=== PATIENT | male | born 1950 | race Caucasian/White ===

== ENCOUNTER 2016-11-28 17:28 | Inpatient (IN) | payer MEDICARE, MEDICAID ==
[2016-11-28] MEDS ORDERED: Furosemide 40 MG/4 ML VIAL IVPUSH ONE (17:39)
--- NOTE | 2016-11-28 18:49 | PCM.HP ---
H&P History of Present Illness - General Date of Service: 11/28/16 Admit Problem/Dx: Admission Diagnosis/Problem Admission Diagnosis/Problem CHF, Congestive heart failure Source of Information: Patient History Limitations: Reports: No Limitations - History of Present Illness Initial Comments - Free Text/Narative: This is a 65-year-old male patient saw Dr. Johanna motley in the clinic for increasing shortness of breath. X-ray was done showed CHF. He's been having weight gain. 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 He says he can lay flat but he usually lays on his side. He denies fevers, chills, cough, nasal congestion no leg swelling. - Related Data Allergies/Adverse Reactions: Allergies Allergy/AdvReac Type Severity Reaction Status Date / Time No Known Allergies Allergy Verified 06/24/15 17:48 Home Medications: Home Meds . 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 Social & Family History - Family History Family Medical History: Noncontributory - Tobacco Use Smoking Status *Q: Current Some Day Smoker Years of Tobacco use: 40 Packs/Tins Daily: 1 Used Tobacco, but Quit: No Second Hand Smoke Exposure: No - Caffeine Use Caffeine Use: Reports: None - Alcohol Use Days Per Week of Alcohol Use: 7 Number of Drinks Per Day: 2 Total Drinks Per Week: 14 Date of Last Drink: 11/27/16 Time of Last Drink: 20:00 - Recreational Drug Use Recreational Drug Use: No H&P Review of Systems - Review of Systems: Review Of Systems: See Below General: Reports: No Symptoms HEENT: Reports: No Symptoms Pulmonary: Reports: Shortness of Breath. Denies: Cough, Sputum, Hemoptysis Cardiovascular: Denies: Chest Pain, Orthopnea, PND Gastrointestinal: Reports: No Symptoms Genitourinary: Reports: No Symptoms Musculoskeletal: Reports: No Symptoms Skin: Reports: No Symptoms Psychiatric: Reports: No Symptoms Neurological: Reports: No Symptoms Hematologic/Lymphatic: Reports: No Symptoms Immunologic: Reports: No Symptoms Exam - Exam Exam: See Below - Vital Signs Vital Signs: Last Vital Signs Temp 97.9 F 11/28/16 17:45 Pulse 87 11/28/16 17:45 Resp 16 11/28/16 17:45 BP 102/70 11/28/16 17:45 Pulse Ox 93 L 11/28/16 17:45 Weight: 227 lb 12.8 oz - Exam General: Alert, Oriented, Cooperative HEENT: PERRLA, Hearing Intact, Posterior Pharynx Clear, TMs Clear Neck: Supple, Trachea Midline. No: Lymphadenopathy, Carotid Bruit, JVD Lungs: Normal Respiratory Effort, Crackles (Bilateral worse on the right) Cardiovascular: Regular Rate, Regular Rhythm, Normal S1, Normal S2. No: Bradycardia, Tachycardia, Systolic Murmur, Diastolic Murmur GI/Abdominal Exam: Normal Bowel Sounds, Soft, Non-Tender, No Organomegaly, No Distention, No Abnormal Bruit, No Mass Back Exam: Normal Inspection, Full Range of Motion, NT Extremities: No Pedal Edema, Other (Left leg amputated with prosthesis.) Skin: Warm, Dry, Intact Neurological: Normal Speech, Normal Tone Neuro Extensive - Mental Status: Alert, Oriented x3, Normal Mood/Affect, Normal Cognition Neuro Extensive - Motor, Sensory, Reflexes: Normal Gait Psychiatric: Alert, Normal Affect, Normal Mood - Patient Data Lab Results Last 24 hrs: Laboratory Results - last 24 hr 11/28/16 11/28/16 11/28/16 Range/Units 18:05 18:05 18:05 WBC 6.8 (4.5-12.0) X10-3/uL RBC 4.56 (4.30-5.75) x10(6)uL Hgb 13.1 (11.5-15.5) g/dL Hct 39.7 (30.0-51.3) % MCV 87.1 (80-96) fL MCH 28.8 (27.7-33.6) pg MCHC 33.1 (32.2-35.4) g/dL RDW 14.7 (11.5-15.5) % Plt Count 243 (125-369) X10(3)uL MPV 7.8 (7.4-10.4) fL Neut % (Auto) 67.1 (46-82) % Lymph % (Auto) 18.1 (13-37) % [place] % (Auto) 7.2 (4-12) % Eos % (Auto) 6 H (1.0-5.0) % Baso % (Auto) 2 (0-2) % Neut # (Auto) 4.6 (1.6-8.3) # Lymph # (Auto) 1.2 (0.6-5.0) # [place] # (Auto) 0.5 (0.0-1.3) # Eos # (Auto) 0.4 (0.0-0.8) # Baso # (Auto) 0.1 (0.0-0.2) # Sodium 138 (135-145) mmol/L Potassium 4.8 (3.5-5.3) mmol/L Chloride 108 (100-110) mmol/L Carbon Dioxide 21 L (23-29) mmol/L BUN 32 H (8-23) mg/dL Creatinine 1.3 (0.6-1.3) mg/dL Est Cr Clr Drug Dosing 66.74 mL/min Estimated GFR (MDRD) 56 L (>60) BUN/Creatinine Ratio 24.6 H (9-20) Glucose 156 H (80-116) mg/dL Calcium 8.9 (8.6-10.2) mg/dL Total Bilirubin 0.7 (0.1-1.3) mg/dL AST 19 (5-27) IU/L ALT 14 (14-26) IU/L Alkaline Phosphatase 98 (56-112) IU/L Troponin I 0.06 (0.02-0.06) NG/ML B-Natriuretic Peptide (0-100) pg/mL Total Protein 7.9 (6.0-8.0) g/dL Albumin 3.9 (3.2-4.6) g/dL Globulin 4.0 g/dL Albumin/Globulin Ratio 1.0 11/28/ Range/Units 18:05 WBC (4.5-12.0) X10-3/uL RBC (4.30-5.75) x10(6)uL Hgb (11.5-15.5) g/dL Hct (30.0-51.3) % MCV (80-96) fL MCH (27.7-33.6) pg MCHC (32.2-35.4) g/dL RDW (11.5-15.5) % Plt Count (125-369) X10(3)uL MPV (7.4-10.4) fL Neut % (Auto) (46-82) % Lymph % (Auto) (13-37) % [place] % (Auto) (4-12) % Eos % (Auto) (1.0-5.0) % Baso % (Auto) (0-2) % Neut # (Auto) (1.6-8.3) # Lymph # (Auto) (0.6-5.0) # [place] # (Auto) (0.0-1.3) # Eos # (Auto) (0.0-0.8) # Baso # (Auto) (0.0-0.2) # Sodium (135-145) mmol/L Potassium (3.5-5.3) mmol/L Chloride (100-110) mmol/L Carbon Dioxide (23-29) mmol/L BUN (8-23) mg/dL Creatinine (0.6-1.3) mg/dL Est Cr Clr Drug Dosing mL/min Estimated GFR (MDRD) (>60) BUN/Creatinine Ratio (9-20) Glucose (80-116) mg/dL Calcium (8.6-10.2) mg/dL Total Bilirubin (0.1-1.3) mg/dL AST (5-27) IU/L ALT (14-26) IU/L Alkaline Phosphatase (56-112) IU/L Troponin I (0.02-0.06) NG/ML B-Natriuretic Peptide 681 H (0-100) pg/mL Total Protein (6.0-8.0) g/dL Albumin (3.2-4.6) g/dL Globulin g/dL Albumin/Globulin Ratio Result Diagrams: 11/28/16 18:05 11/28/16 18:05 *Q Meaningful Use (ADM) - VTE *Q VTE Criteria *Q: - Stroke *Q Stroke Criteria *Q: - AMI *Q AMI Criteria *Q: - Problem List (1) CHF (congestive heart failure) SNOMED Code(s): 68488859 ICD Code: I50.9 - HEART FAILURE, UNSPECIFIED Status: Acute Current Visit : Yes (2) Diabetes SNOMED Code(s): 00309736 ICD Code: E11.9 - TYPE 2 DIABETES MELLITUS WITHOUT COMPLICATIONS Status: Acute Current Visit: Yes Problem List Initiated/Reviewed/Updated: Yes Orders Last 24hrs: Active Orders 24 hr Category Date Time Status Patient Status [ADT] Routine ADT 11/28/16 17:34 Active EKG Documentation Completion [RC] ASDIRECTED Care 11/28/16 17:37 Active Height and Weight [RC] DAILY Care 11/28/16 17:34 Active Intake and Output [RC] QSHIFT Care 11/28/16 17:35 Active Oxygen Therapy [RC] PRN Care 11/28/16 17:34 Active Telemetry Monitoring [Cardiac Monitoring] [RC] .As Care 11/28/16 18:26 Active Directed Up ad Michelle [RC] ASDIRECTED Care 11/28/16 17:34 Active VTE/DVT Education [RC] Per Unit Routine Care 11/28/16 17:34 Active Vital Signs [RC] Q4H Care 11/28/16 17:34 Active Consistent Carbohydrate Diet [DIET] Diet 11/28/16 Dinner Active UA W/MICROSCOPIC [URIN] Routine Lab 11/28/16 17:34 Uncollected Sodium Chloride 0.9% [Saline Flush] Med 11/28/16 17:34 Active 10 ml FLUSH ASDIRECTED PRN Peripheral IV Insertion Adult [OM.PC] Routine Oth 11/28/16 17:34 Ordered Resuscitation Status Routine Resus Stat 11/28/16 17:34 Ordered EKG 12 Lead [EK] Routine Ther 11/28/16 17:34 Ordered Medication Orders Sodium Chloride (Saline Flush) 10 ml FLUSH ASDIRECTED PRN PRN Reason: Keep Vein Open Assessment/Plan Comment:: 1. Admit inpatient. 2. IV Lasix. 3. CBC, CMP, BNP, UA, EKG, troponin 4. Diabetic diet. 5. High-dose sliding scale with Accu-Cheks 4 times a day. 6. Diabetic diet. 7. Up ad michelle. 8. Eyes nose daily weights. 9. Discussed CODE STATUS needle wants to be a full code. 10. Patient has had an echo within the last 6 months. Is evident the clinic. 11. Chest x-ray reviewed at the clinic. Wait for radiology interpretation.
[2016-11-28] MEDS: Sodium Chloride 0.9% 10 ML Syringe FLUSH PRN ×2 (18:52→19:04)
[2016-11-28] MEDS ORDERED: Enoxaparin 40 MG/0.4 ML Syringe SUBCUT SCH (21:00)
[2016-11-28] MEDS ORDERED: Insulin Aspart 100 Units/ML 3 ML Pen SUBCUT SCH (21:00)
[2016-11-29] MEDS: Insulin Aspart 100 Units/ML 3 ML Pen SUBCUT SCH ×3 (08:26→17:26)
[2016-11-29] MEDS ORDERED: Furosemide 40 MG Tab PO PRN (09:34)
[2016-11-29] MEDS ORDERED: Levofloxacin 250 MG Tab PO SCH (09:45)
--- NOTE | 2016-11-29 09:53 | PCM.PN ---
- General Info Date of Service: 11/29/16 Admission Dx/Problem (Free Text): Patient denies leg swelling, chest pain. Breathing about the same. No cough, fevers or chills. - Patient Data Vitals - Most Recent: Last Vital Signs Temp 97.4 F 11/29/16 07:40 Pulse 82 11/29/16 07:40 Resp 20 11/29/16 07:40 BP 99/68 11/29/16 07:40 Pulse Ox 92 L 11/29/16 07:40 Weight - Most Recent: 225 lb 8 oz I&O - Last 24 Hours: Intake & Output 11/28/16 11/29/16 11/29/16 22:59 06:59 14:59 Intake Total 250 Output Total 1325 600 Balance -1075 -600 Lab Results Last 24 Hours: Laboratory Results - last 24 hr 11/28/16 11/28/16 11/28/16 Range/Units 18:05 18:05 18:05 WBC 6.8 (4.5-12.0) X10-3/uL RBC 4.56 (4.30-5.75) x10(6)uL Hgb 13.1 (11.5-15.5) g/dL Hct 39.7 (30.0-51.3) % MCV 87.1 (80-96) fL MCH 28.8 (27.7-33.6) pg MCHC 33.1 (32.2-35.4) g/dL RDW 14.7 (11.5-15.5) % Plt Count 243 (125-369) X10(3)uL MPV 7.8 (7.4-10.4) fL Neut % (Auto) 67.1 (46-82) % Lymph % (Auto) 18.1 (13-37) % [place] % (Auto) 7.2 (4-12) % Eos % (Auto) 6 H (1.0-5.0) % Baso % (Auto) 2 (0-2) % Neut # (Auto) 4.6 (1.6-8.3) # Lymph # (Auto) 1.2 (0.6-5.0) # [place] # (Auto) 0.5 (0.0-1.3) # Eos # (Auto) 0.4 (0.0-0.8) # Baso # (Auto) 0.1 (0.0-0.2) # Sodium 138 (135-145) mmol/L Potassium 4.8 (3.5-5.3) mmol/L Chloride 108 (100-110) mmol/L Carbon Dioxide 21 L (23-29) mmol/L BUN 32 H (8-23) mg/dL Creatinine 1.3 (0.6-1.3) mg/dL Est Cr Clr Drug Dosing 66.74 mL/min Estimated GFR (MDRD) 56 L (>60) BUN/Creatinine Ratio 24.6 H (9-20) Glucose 156 H (80-116) mg/dL POC Glucose (80-116) mg/dL Calcium 8.9 (8.6-10.2) mg/dL Total Bilirubin 0.7 (0.1-1.3) mg/dL AST 19 (5-27) IU/L ALT 14 (14-26) IU/L Alkaline Phosphatase 98 (56-112) IU/L Troponin I 0.06 (0.02-0.06) NG/ML B-Natriuretic Peptide (0-100) pg/mL Total Protein 7.9 (6.0-8.0) g/dL Albumin 3.9 (3.2-4.6) g/dL Globulin 4.0 g/dL Albumin/Globulin Ratio 1.0 Urine Color (YELLOW) Urine Appearance (CLEAR) Urine pH (5.0-6.5) Ur Specific [place] (1.010-1.025) Urine Protein (NEGATIVE) mg/dL Urine Glucose (UA) (NEGATIVE) mg/dL Urine Ketones (NEGATIVE) mg/dL Urine Occult Blood (NEGATIVE) Urine Nitrite (NEGATIVE) Urine Bilirubin (NEGATIVE) Urine Urobilinogen (NEGATIVE) mg/dL Ur Leukocyte Esterase (NEGATIVE) Urine RBC (0) Urine WBC (0) Ur Squamous Epith Cells (NS,R,O) Urine Bacteria (NS) 11/28/16 11/28/16 11/28/16 Range/Units 18:05 21:10 21:51 WBC (4.5-12.0) X10-3/uL RBC (4.30-5.75) x10(6)uL Hgb (11.5-15.5) g/dL Hct (30.0-51.3) % MCV (80-96) fL MCH (27.7-33.6) pg MCHC (32.2-35.4) g/dL RDW (11.5-15.5) % Plt Count (125-369) X10(3)uL MPV (7.4-10.4) fL Neut % (Auto) (46-82) % Lymph % (Auto) (13-37) % [place] % (Auto) (4-12) % Eos % (Auto) (1.0-5.0) % Baso % (Auto) (0-2) % Neut # (Auto) (1.6-8.3) # Lymph # (Auto) (0.6-5.0) # [place] # (Auto) (0.0-1.3) # Eos # (Auto) (0.0-0.8) # Baso # (Auto) (0.0-0.2) # Sodium (135-145) mmol/L Potassium (3.5-5.3) mmol/L Chloride (100-110) mmol/L Carbon Dioxide (23-29) mmol/L BUN (8-23) mg/dL Creatinine (0.6-1.3) mg/dL Est Cr Clr Drug Dosing mL/min Estimated GFR (MDRD) (>60) BUN/Creatinine Ratio (9-20) Glucose (80-116) mg/dL POC Glucose 188 H (80-116) mg/dL Calcium (8.6-10.2) mg/dL Total Bilirubin (0.1-1.3) mg/dL AST (5-27) IU/L ALT (14-26) IU/L Alkaline Phosphatase (56-112) IU/L Troponin I (0.02-0.06) NG/ML B-Natriuretic Peptide 681 H (0-100) pg/mL Total Protein (6.0-8.0) g/dL Albumin (3.2-4.6) g/dL Globulin g/dL Albumin/Globulin Ratio Urine Color Yellow (YELLOW) Urine Appearance Clear (CLEAR) Urine pH 5.0 (5.0-6.5) Ur Specific [place] 1.010 (1.010-1.025) Urine Protein Negative (NEGATIVE) mg/dL Urine Glucose (UA) Normal (NEGATIVE) mg/dL Urine Ketones Negative (NEGATIVE) mg/dL Urine Occult Blood Negative (NEGATIVE) Urine Nitrite Negative (NEGATIVE) Urine Bilirubin Negative (NEGATIVE) Urine Urobilinogen Normal (NEGATIVE) mg/dL Ur Leukocyte Esterase Negative (NEGATIVE) Urine RBC Not seen (0) Urine WBC 0-5 (0) Ur Squamous Epith Cells Few H (NS,R,O) Urine Bacteria Few H (NS) 11/29/16 Range/Units 05:53 WBC (4.5-12.0) X10-3/uL RBC (4.30-5.75) x10(6)uL Hgb (11.5-15.5) g/dL Hct (30.0-51.3) % MCV (80-96) fL MCH (27.7-33.6) pg MCHC (32.2-35.4) g/dL RDW (11.5-15.5) % Plt Count (125-369) X10(3)uL MPV (7.4-10.4) fL Neut % (Auto) (46-82) % Lymph % (Auto) (13-37) % [place] % (Auto) (4-12) % Eos % (Auto) (1.0-5.0) % Baso % (Auto) (0-2) % Neut # (Auto) (1.6-8.3) # Lymph # (Auto) (0.6-5.0) # [place] # (Auto) (0.0-1.3) # Eos # (Auto) (0.0-0.8) # Baso # (Auto) (0.0-0.2) # Sodium (135-145) mmol/L Potassium (3.5-5.3) mmol/L Chloride (100-110) mmol/L Carbon Dioxide (23-29) mmol/L BUN (8-23) mg/dL Creatinine (0.6-1.3) mg/dL Est Cr Clr Drug Dosing mL/min Estimated GFR (MDRD) (>60) BUN/Creatinine Ratio (9-20) Glucose (80-116) mg/dL POC Glucose 177 H (80-116) mg/dL Calcium (8.6-10.2) mg/dL Total Bilirubin (0.1-1.3) mg/dL AST (5-27) IU/L ALT (14-26) IU/L Alkaline Phosphatase (56-112) IU/L Troponin I (0.02-0.06) NG/ML B-Natriuretic Peptide (0-100) pg/mL Total Protein (6.0-8.0) g/dL Albumin (3.2-4.6) g/dL Globulin g/dL Albumin/Globulin Ratio Urine Color (YELLOW) Urine Appearance (CLEAR) Urine pH (5.0-6.5) Ur Specific [place] (1.010-1.025) Urine Protein (NEGATIVE) mg/dL Urine Glucose (UA) (NEGATIVE) mg/dL Urine Ketones (NEGATIVE) mg/dL Urine Occult Blood (NEGATIVE) Urine Nitrite (NEGATIVE) Urine Bilirubin (NEGATIVE) Urine Urobilinogen (NEGATIVE) mg/dL Ur Leukocyte Esterase (NEGATIVE) Urine RBC (0) Urine WBC (0) Ur Squamous Epith Cells (NS,R,O) Urine Bacteria (NS) Med Orders - Current: Current Medications Amiodarone HCl (Cordarone) 200 mg PO DAILY ON LICENSE OF [facility] Aspirin (Aspirin) 81 mg PO DAILY ON LICENSE OF [facility] Carvedilol (Coreg) 3.125 mg PO BIDMEALS ON LICENSE OF [facility] Enoxaparin Sodium (Lovenox) 40 mg SUBCUT Q24H ON LICENSE OF [facility] Last Admin: 11/28/16 22:10 Dose: 40 mg Furosemide (Lasix) 40 mg PO DAILY PRN PRN Reason: WEIGHT GAIN 3# OR MORE Insulin Aspart (Novolog) 0 unit SUBCUT QIDACANDBED ON LICENSE OF [facility] PRN Reason: Protocol Last Admin: 11/29/16 08:26 Dose: 3 units Levofloxacin (Levaquin) 250 mg PO Q24H ON LICENSE OF [facility] Lisinopril (Prinivil) 10 mg PO DAILY ON LICENSE OF [facility] Metformin HCl (Glucophage) 1,000 mg PO BIDMEALS ON LICENSE OF [facility] Simvastatin (Zocor) 10 mg PO BEDTIME ON LICENSE OF [facility] Sodium Chloride (Saline Flush) 10 ml FLUSH ASDIRECTED PRN PRN Reason: Keep Vein Open Last Admin: 11/28/16 19:04 Dose: 10 ml Warfarin Sodium (Coumadin) 5 mg PO DAILY ON LICENSE OF [facility] Discontinued Medications Furosemide (Lasix) 60 mg IVPUSH NOW ONE Stop: 11/28/16 17:40 Last Admin: 11/28/16 18:53 Dose: 60 mg Insulin Aspart (Novolog) 0 unit SUBCUT QID ON LICENSE OF [facility] PRN Reason: Protocol Last Admin: 11/28/16 22:09 Dose: 3 units - Exam General: Alert, Oriented, Cooperative Lungs: Normal Respiratory Effort, Crackles Cardiovascular: Regular Rate, Regular Rhythm, No Murmurs Extremities: No Pedal Edema - Problem List & Annotations (1) Diabetes SNOMED Code(s): 34211486 Code(s): E11.9 - TYPE 2 DIABETES MELLITUS WITHOUT COMPLICATIONS Status: Acute Current Visit: Yes (2) Pneumonia SNOMED Code(s): 064045729 Code(s): J18.9 - PNEUMONIA, UNSPECIFIED ORGANISM Status: Acute Current Visit: Yes - Problem List Review Problem List Initiated/Reviewed/Updated: Yes - My Orders Last 24 Hours: My Active Orders 11/28/16 17:34 Patient Status [ADT] Routine Oxygen Therapy [RC] PRN Up ad Michelle [RC] ASDIRECTED Vital Signs [RC] 04,08,12,16,20,00 Sodium Chloride 0.9% [Saline Flush] 10 ml FLUSH ASDIRECTED PRN Peripheral IV Insertion Adult [OM.PC] Routine Resuscitation Status Routine EKG 12 Lead [EK] Routine 11/28/16 19:36 Blood Glucose Check, Bedside [RC] 07,1130,1730,2100 11/28/16 21:00 Enoxaparin [Lovenox] 40 mg SUBCUT Q24H 11/28/16 Dinner Consistent Carbohydrate Diet [DIET] 11/29/16 08:30 Insulin Aspart [NovoLOG] 0 unit SUBCUT QIDACANDBED 11/29/16 09:32 Ang Chest [CT] Routine 11/29/16 09:34 Furosemide [Lasix] 40 mg PO DAILY PRN 11/29/16 09:45 INR,PT,PROTHROMBIN TIME [COAG] DAILY Levofloxacin [Levaquin] 250 mg PO Q24H 11/29/16 18:00 Carvedilol [Coreg] 3.125 mg PO BIDMEALS metFORMIN [Glucophage] 1,000 mg PO BIDMEALS 11/29/16 21:00 Simvastatin [Zocor] 10 mg PO BEDTIME 11/30/16 09:00 Amiodarone [Cordarone] 200 mg PO DAILY Aspirin 81 mg PO DAILY Lisinopril [Prinivil] 10 mg PO DAILY Warfarin [Coumadin] 5 mg PO DAILY 11/30/16 09:45 INR,PT,PROTHROMBIN TIME [COAG] DAILY 12/01/16 09:45 INR,PT,PROTHROMBIN TIME [COAG] DAILY 12/02/16 09:45 INR,PT,PROTHROMBIN TIME [COAG] DAILY 12/03/16 09:45 INR,PT,PROTHROMBIN TIME [COAG] DAILY 12/04/16 09:45 INR,PT,PROTHROMBIN TIME [COAG] DAILY - Plan Plan:: 1. CT scan chest due to pneumonia and cannot rule out malignancy. 2. DC daily weights, I/oh 3. Levaquin 750 mg by mouth daily. 3. Restart home medications.
[2016-11-29] MEDS ORDERED: Levofloxacin 500 MG Tab PO SCH (10:00)
[2016-11-29] MEDS ORDERED: Aspirin 81 MG Tab.Chew PO SCH (10:30)
[2016-11-29] MEDS ORDERED: Amiodarone 200 MG Tab PO SCH (10:30)
[2016-11-29] MEDS ORDERED: Lisinopril 10 MG Tab PO SCH (10:30)
[2016-11-29] MEDS ORDERED: Azithromycin 500 MG Tab PO ONE (11:00)
[2016-11-29] MEDS ORDERED: Amoxicillin/Clavulanate K 875-125 MG Tab PO SCH (11:00)
[2016-11-29] MEDS: Carvedilol 3.125 MG Tab PO SCH ×2 (11:22→18:41)
[2016-11-29] MEDS ORDERED: Iopamidol 755 MG/ML 150 ML Bottle IV ONE (11:28)
[2016-11-29] MEDS ORDERED: metFORMIN 1,000 MG Tab PO SCH (12:00)
--- NOTE | 2016-11-29 15:05 | CT ---
INDICATION: Follow-up pneumonia. Cannot rule out CA. Smoker, 1 pack per day x40 years. CT CHEST WITH CONTRAST: Spiral 2.5-mm axial sections were obtained through the chest with 78 mL Isovue-370 at 3 mL per second, with sagittal and coronal reconstructions, 11/29/2016. Comparison was to chest x-ray from [facility] dated 11/28/2016. Total Exam DLP = 626.80 mGy-cm. Bilateral pleural effusions are noted, large on the right, moderately large on the left. Minimal, mostly subpleural patchy infiltration is scattered about the lungs bilaterally. Findings may be on the basis of pneumonia and pleuritis , but should be correlated clinically. No nodular changes to strongly suggest metastatic disease could be identified. No finding to strongly suggest a primary neoplasm was seen. Mediastinal lymphadenopathy is moderate and nonspecific. It could be on the basis of inflammatory disease - pneumonia. Calcifications are noted in the aorta and, extensively, coronary arteries. The heart is enlarged to a moderate degree. The adrenal glands were unremarkable. Fat stranding - renal fascial thickening compatible with renal cortical scarring - is noted. The gallbladder is contracted. There are a few tiny higher density areas in the neck of the gallbladder, suggesting the possibility of tiny calculi. IMPRESSION: 1. Infiltration and effusions may be on the basis of pneumonia and pleuritis, but should be correlated clinically. No gross evidence for malignancy is identified. 2. ASHD with coronary artery calcifications and cardiac enlargement. 3. Renal cortical scarring. 4. Possible tiny calculi with contracted gallbladder - cholelithiasis. Report was called to Dr. Galvez at 1420 hours, 11/29/2016. [facility]
[2016-11-29] MEDS ORDERED: Warfarin 5 MG Tab PO SCH (16:00)
[2016-11-29 17:20] VITALS: BP 93/64
--- NOTE | 2016-11-29 18:14 | PCM.SN ---
- Free Text/Narrative Note: Patient's CT showed pneumonia little pleural effusion. Little gallbladder stones. No CHF. No malignancy. We'll discharged him to home on by mouth antibiotics.
--- NOTE | 2016-11-29 18:19 | PCM.DCSUM1 ---
Discharge Summary - Hospital Course Free Text/Narrative:: Hospital course-the patient was admitted his chest x-ray was reviewed at the clinic. He is given some IV Lasix and did some diuresis. Next morning x-ray report was pneumonia. Sent cannot rule out malignancy. CT scan was done showed pneumonia without malignancy. Radiologist recommended to be rechecked to make sure it clears up. Patient's breathing was better. He is afebrile with no his of congestion, cough or leg swelling. Brief History: This is a 65-year-old male patient saw Dr. Johanna motley in the clinic for increasing shortness of breath. X-ray was done showed CHF. He's been having weight gain. 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 He says he can lay flat but he usually lays on his side. He denies fevers, chills, cough, nasal congestion no leg swelling. - Discharge Data Discharge Date: 11/29/16 Discharge Disposition: Home, Self-Care 01 Condition: Good - Discharge Diagnosis/Problem(s) (1) Diabetes SNOMED Code(s): 91867606 ICD Code: E11.9 - TYPE 2 DIABETES MELLITUS WITHOUT COMPLICATIONS Status: Acute Current Visit: Yes (2) Pneumonia SNOMED Code(s): 453432490 ICD Code: J18.9 - PNEUMONIA, UNSPECIFIED ORGANISM Status: Acute Current Visit: Yes (3) Gallstones SNOMED Code(s): 136793802 ICD Code: K80.20 - CALCULUS OF GALLBLADDER W/O CHOLECYSTITIS W/O OBSTRUCTION Status: Acute Current Visit: Yes - Patient Instructions Diet: Diabetic Diet Activity: As Tolerated Driving: May Drive Today Showering/Bathing: May Shower Notify Provider of: Fever, Increased Pain, Drainage, Nausea and/or Vomiting Other/Special Instructions: 1. Recheck with Dr. Spencer in 10-12 days with a chest x-ray. - Discharge Plan Prescriptions/Med Rec: Amoxicillin/Clavulanate K [Augmentin 875-125 MG] 1 tab PO BID #20 tablet Azithromycin [Zithromax] 250 mg PO DAILY #5 tablet Home Medications: Home Meds Amiodarone [Cordarone] 200 mg PO DAILY 11/28/16 [History] Aspirin 81 mg PO DAILY 11/28/16 [History] Carvedilol 3.125 mg PO BIDMEALS 11/28/16 [History] Furosemide 40 mg PO DAILY PRN 11/28/16 [History] Lisinopril 10 mg PO DAILY 11/28/16 [History] Simvastatin [Zocor] 10 mg PO BEDTIME 11/28/16 [History] Warfarin [Coumadin] 5 mg PO DAILY 11/28/16 [History] metFORMIN [Glucophage] 1,000 mg PO BIDMEALS 11/28/16 [History] Amoxicillin/Clavulanate K [Augmentin 875-125 MG] 1 tab PO BID #20 tablet [Rx] Azithromycin [Zithromax] 250 mg PO DAILY #5 tablet 11/29/16 [Rx] Patient Handouts: Type 2 Diabetes Mellitus, Adult, Atelectasis, Adult, Heart Failure, [id number], Fall Prevention in Hospitals, Adult, Venous Thromboembolism Prevention, Community-Acquired Pneumonia, Adult, [id number] - Discharge Summary/Plan Comment DC Time >30 min.: No - Patient Data Vitals - Most Recent: Last Vital Signs Temp 97.6 F 11/29/16 15:35 Pulse 52 L 11/29/16 17:08 Resp 24 H 11/29/16 17:08 BP 93/64 11/29/16 17:08 Pulse Ox 95 11/29/16 17:08 Weight - Most Recent: 225 lb 8 oz I&O - Last 24 hours: Intake & Output 11/29/16 11/29/16 11/29/16 06:59 14:59 22:59 Output Total 600 Balance -600 Lab Results - Last 24 hrs: Laboratory Results - last 24 hr 11/28/16 11/28/16 11/28/16 Range/Units 18:05 18:05 18:05 WBC 6.8 (4.5-12.0) X10-3/uL RBC 4.56 (4.30-5.75) x10(6)uL Hgb 13.1 (11.5-15.5) g/dL Hct 39.7 (30.0-51.3) % MCV 87.1 (80-96) fL MCH 28.8 (27.7-33.6) pg MCHC 33.1 (32.2-35.4) g/dL RDW 14.7 (11.5-15.5) % Plt Count 243 (125-369) X10(3)uL MPV 7.8 (7.4-10.4) fL Neut % (Auto) 67.1 (46-82) % Lymph % (Auto) 18.1 (13-37) % Crosby % (Auto) 7.2 (4-12) % Eos % (Auto) 6 H (1.0-5.0) % Baso % (Auto) 2 (0-2) % Neut # (Auto) 4.6 (1.6-8.3) # Lymph # (Auto) 1.2 (0.6-5.0) # Crosby # (Auto) 0.5 (0.0-1.3) # Eos # (Auto) 0.4 (0.0-0.8) # Baso # (Auto) 0.1 (0.0-0.2) # PT (8.7-11.1) INR (0.89-1.13) Sodium 138 (135-145) mmol/L Potassium 4.8 (3.5-5.3) mmol/L Chloride 108 (100-110) mmol/L Carbon Dioxide 21 L (23-29) mmol/L BUN 32 H (8-23) mg/dL Creatinine 1.3 (0.6-1.3) mg/dL Est Cr Clr Drug Dosing 66.74 mL/min Estimated GFR (MDRD) 56 L (>60) BUN/Creatinine Ratio 24.6 H (9-20) Glucose 156 H (80-116) mg/dL POC Glucose (80-116) mg/dL Calcium 8.9 (8.6-10.2) mg/dL Total Bilirubin 0.7 (0.1-1.3) mg/dL AST 19 (5-27) IU/L ALT 14 (14-26) IU/L Alkaline Phosphatase 98 (56-112) IU/L Troponin I 0.06 (0.02-0.06) NG/ML B-Natriuretic Peptide (0-100) pg/mL Total Protein 7.9 (6.0-8.0) g/dL Albumin 3.9 (3.2-4.6) g/dL Globulin 4.0 g/dL Albumin/Globulin Ratio 1.0 Urine Color (YELLOW) Urine Appearance (CLEAR) Urine pH (5.0-6.5) Ur Specific [place] (1.010-1.025) Urine Protein (NEGATIVE) mg/dL Urine Glucose (UA) (NEGATIVE) mg/dL Urine Ketones (NEGATIVE) mg/dL Urine Occult Blood (NEGATIVE) Urine Nitrite (NEGATIVE) Urine Bilirubin (NEGATIVE) Urine Urobilinogen (NEGATIVE) mg/dL Ur Leukocyte Esterase (NEGATIVE) Urine RBC (0) Urine WBC (0) Ur Squamous Epith Cells (NS,R,O) Urine Bacteria (NS) 11/28/16 11/28/16 11/28/16 Range/Units 18:05 21:10 21:51 WBC (4.5-12.0) X10-3/uL RBC (4.30-5.75) x10(6)uL Hgb (11.5-15.5) g/dL Hct (30.0-51.3) % MCV (80-96) fL MCH (27.7-33.6) pg MCHC (32.2-35.4) g/dL RDW (11.5-15.5) % Plt Count (125-369) X10(3)uL MPV (7.4-10.4) fL Neut % (Auto) (46-82) % Lymph % (Auto) (13-37) % Crosby % (Auto) (4-12) % Eos % (Auto) (1.0-5.0) % Baso % (Auto) (0-2) % Neut # (Auto) (1.6-8.3) # Lymph # (Auto) (0.6-5.0) # Crosby # (Auto) (0.0-1.3) # Eos # (Auto) (0.0-0.8) # Baso # (Auto) (0.0-0.2) # PT (8.7-11.1) INR (0.89-1.13) Sodium (135-145) mmol/L Potassium (3.5-5.3) mmol/L Chloride (100-110) mmol/L Carbon Dioxide (23-29) mmol/L BUN (8-23) mg/dL Creatinine (0.6-1.3) mg/dL Est Cr Clr Drug Dosing mL/min Estimated GFR (MDRD) (>60) BUN/Creatinine Ratio (9-20) Glucose (80-116) mg/dL POC Glucose 188 H (80-116) mg/dL Calcium (8.6-10.2) mg/dL Total Bilirubin (0.1-1.3) mg/dL AST (5-27) IU/L ALT (14-26) IU/L Alkaline Phosphatase (56-112) IU/L Troponin I (0.02-0.06) NG/ML B-Natriuretic Peptide 681 H (0-100) pg/mL Total Protein (6.0-8.0) g/dL Albumin (3.2-4.6) g/dL Globulin g/dL Albumin/Globulin Ratio Urine Color Yellow (YELLOW) Urine Appearance Clear (CLEAR) Urine pH 5.0 (5.0-6.5) Ur Specific [place] 1.010 (1.010-1.025) Urine Protein Negative (NEGATIVE) mg/dL Urine Glucose (UA) Normal (NEGATIVE) mg/dL Urine Ketones Negative (NEGATIVE) mg/dL Urine Occult Blood Negative (NEGATIVE) Urine Nitrite Negative (NEGATIVE) Urine Bilirubin Negative (NEGATIVE) Urine Urobilinogen Normal (NEGATIVE) mg/dL Ur Leukocyte Esterase Negative (NEGATIVE) Urine RBC Not seen (0) Urine WBC 0-5 (0) Ur Squamous Epith Cells Few H (NS,R,O) Urine Bacteria Few H (NS) 11/29/16 11/29/16 11/29/16 Range/Units 05:53 09:45 11:20 WBC (4.5-12.0) X10-3/uL RBC (4.30-5.75) x10(6)uL Hgb (11.5-15.5) g/dL Hct (30.0-51.3) % MCV (80-96) fL MCH (27.7-33.6) pg MCHC (32.2-35.4) g/dL RDW (11.5-15.5) % Plt Count (125-369) X10(3)uL MPV (7.4-10.4) fL Neut % (Auto) (46-82) % Lymph % (Auto) (13-37) % Crosby % (Auto) (4-12) % Eos % (Auto) (1.0-5.0) % Baso % (Auto) (0-2) % Neut # (Auto) (1.6-8.3) # Lymph # (Auto) (0.6-5.0) # Crosby # (Auto) (0.0-1.3) # Eos # (Auto) (0.0-0.8) # Baso # (Auto) (0.0-0.2) # PT 14.2 H (8.7-11.1) INR 1.40 H (0.89-1.13) Sodium (135-145) mmol/L Potassium (3.5-5.3) mmol/L Chloride (100-110) mmol/L Carbon Dioxide (23-29) mmol/L BUN (8-23) mg/dL Creatinine (0.6-1.3) mg/dL Est Cr Clr Drug Dosing mL/min Estimated GFR (MDRD) (>60) BUN/Creatinine Ratio (9-20) Glucose (80-116) mg/dL POC Glucose 177 H 160 H (80-116) mg/dL Calcium (8.6-10.2) mg/dL Total Bilirubin (0.1-1.3) mg/dL AST (5-27) IU/L ALT (14-26) IU/L Alkaline Phosphatase (56-112) IU/L Troponin I (0.02-0.06) NG/ML B-Natriuretic Peptide (0-100) pg/mL Total Protein (6.0-8.0) g/dL Albumin (3.2-4.6) g/dL Globulin g/dL Albumin/Globulin Ratio Urine Color (YELLOW) Urine Appearance (CLEAR) Urine pH (5.0-6.5) Ur Specific [place] (1.010-1.025) Urine Protein (NEGATIVE) mg/dL Urine Glucose (UA) (NEGATIVE) mg/dL Urine Ketones (NEGATIVE) mg/dL Urine Occult Blood (NEGATIVE) Urine Nitrite (NEGATIVE) Urine Bilirubin (NEGATIVE) Urine Urobilinogen (NEGATIVE) mg/dL Ur Leukocyte Esterase (NEGATIVE) Urine RBC (0) Urine WBC (0) Ur Squamous Epith Cells (NS,R,O) Urine Bacteria (NS) Med Orders - Current: Current Medications Amiodarone HCl (Cordarone) 200 mg PO DAILY [facility] Last Admin: 11/29/16 11:21 Dose: 200 mg Amoxicillin/Clavulanate Potassium (Augmentin 875 Mg/125 Mg) 1 tab PO BID [facility] Last Admin: 11/29/16 11:24 Dose: 1 tab Aspirin (Aspirin) 81 mg PO DAILY [facility] Last Admin: 11/29/16 11:21 Dose: 81 mg Azithromycin (Zithromax) 250 mg PO DAILY [facility] Stop: 12/03/16 09:01 Carvedilol (Coreg) 3.125 mg PO BIDMEALS [facility] Last Admin: 11/29/16 11:22 Dose: 3.125 mg Enoxaparin Sodium (Lovenox) 40 mg SUBCUT Q24H [facility] Last Admin: 11/28/16 22:10 Dose: 40 mg Furosemide (Lasix) 40 mg PO DAILY PRN PRN Reason: WEIGHT GAIN 3# OR MORE Insulin Aspart (Novolog) 0 unit SUBCUT QIDACANDBED [facility] PRN Reason: Protocol Last Admin: 11/29/16 17:26 Dose: 3 units Lisinopril (Prinivil) 10 mg PO DAILY [facility] Last Admin: 11/29/16 11:22 Dose: 10 mg Metformin HCl (Glucophage) 1,000 mg PO BIDMEALS [facility] Last Admin: 11/29/16 11:25 Dose: 1,000 mg Simvastatin (Zocor) 10 mg PO BEDTIME [facility] Sodium Chloride (Saline Flush) 10 ml FLUSH ASDIRECTED PRN PRN Reason: Keep Vein Open Last Admin: 11/28/16 19:04 Dose: 10 ml Warfarin Sodium (Coumadin) 5 mg PO 1600 [facility] Last Admin: 11/29/16 15:48 Dose: 5 mg Discontinued Medications Azithromycin (Zithromax) 500 mg PO ONETIME ONE Stop: 11/29/16 11:01 Last Admin: 11/29/16 11:25 Dose: 500 mg Furosemide (Lasix) 60 mg IVPUSH NOW ONE Stop: 11/28/16 17:40 Last Admin: 11/28/16 18:53 Dose: 60 mg Insulin Aspart (Novolog) 0 unit SUBCUT QID [facility] PRN Reason: Protocol Last Admin: 11/28/16 22:09 Dose: 3 units Iopamidol (Isovue-370 (76%)) 150 ml IV ONETIME ONE Stop: 11/29/16 11:29 Last Admin: 11/29/16 11:53 Dose: 78 ml Levofloxacin (Levaquin) 250 mg PO Q24H [facility] Levofloxacin (Levaquin) 750 mg PO Q48H [facility] *Q Meaningful Use (DIS) - VTE *Q VTE Criteria *Q: - Stroke *Q Stroke Criteria *Q: - AMI *Q AMI Criteria *Q:
[2016-11-29] MEDS ORDERED: Simvastatin 10 MG Tab PO SCH (21:00)
[2016-11-30] MEDS ORDERED: Azithromycin 250 MG Tab PO SCH (09:00)
== END 2016-11-29 18:51 | disposition home or self-care (01) | DRG 195 ==
LOC: FB.MS 17:28
PROVIDERS: ADMIT Family Medicine; ATTEND Family Medicine
DX: J18.9 Pneumonia, unspecified organism (principal); K80.20 Calculus of gallbladder without cholecystitis without obstruction; E11.9 Type 2 diabetes mellitus without complications; E78.00 Pure hypercholesterolemia, unspecified; I10 Essential (primary) hypertension; F17.200 Nicotine dependence, unspecified, uncomplicated; Z89.511 Acquired absence of right leg below knee
CPT/HCPCS: 36415; 71260; 80053; 81001; 82962; 83880; 84484; 85025; 85610; 93005; 99223; 99238; A9270-GY; J1650; J1940; J7050; Q9967

== ENCOUNTER 2018-09-26 20:17 | Emergency (ER) | payer MEDICARE ==
[2018-09-26] MEDS: Sodium Chloride 0.9% 10 ML Syringe FLUSH PRN ×3 (20:22→22:05)
[2018-09-26] MEDS ORDERED: Calcium Gluconate 10% 1 GM/10 ML SDV IVPUSH ONE (21:07)
[2018-09-26] MEDS ORDERED: 50% Dextrose in Water 50 ML Syringe IVPUSH ONE (21:51)
[2018-09-26] MEDS ORDERED: Insulin Regular, Human 100 Units/ML 3 ML Vial IV ONE (21:51)
--- NOTE | 2018-09-26 22:26 | EDM.PDOC ---
ED HPI GENERAL MEDICAL PROBLEM - General Stated Complaint: POSSIBLE STROKE Time Seen by Provider: 09/26/18 20:20 Source of Information: Reports: Family, Old Records History Limitations: Reports: Altered Mental Status - History of Present Illness INITIAL COMMENTS - FREE TEXT/NARRATIVE: patient brought in by his with concern for increasing confusion this afternoon. She states that they went to an appointment with his primary care provider at 2 PM which was a follow up an appointment from having been seen on September 17 and diagnosed with pneumonia. She states that after the appointment today they went and did some errands in town and when she got back to the car at 5:00 he had the door slightly open, and she had to instruct him twice to close it. By the time they got home he was significantly weak and kind of confused, although still responding to some of her questions and making comments. She called her son to come and help get him out of the car and into the house. As the evening went on he got more and more confused and so she brought him back to the emergency room to be evaluated. She reports that his metformin was held on September 17 with concern for something with his kidneys. She states he has approximately 1 pill of antibiotic left, but doesn't know what it is and doesn't have his med list. he does have a implantable ICD or defibrillator or something, history of heart problems and needed some kind of catheter to drain fluid off his lungs for a while. he has had some developing kidney problems for a while it sounds like. He does not have any history of liver problems that she knows of, however he does have a history of alcohol use which she categorizes as heavy. she denies any signs of bleeding such as vomiting blood, or black stools but says she also might just not know. He has a history of a [id number] amputation on the right side which has not been any problem for him in the last couple of weeks. He has not had any fever that she is aware of. - Related Data Allergies Allergy/AdvReac Type Severity Reaction Status Date / Time No Known Allergies Allergy Verified 11/28/16 19:19 Home Meds: Home Meds RX: Amiodarone [Cordarone] 200 mg PO DAILY 11/28/16 [History] RX: Aspirin 81 mg PO DAILY 11/28/16 [History] RX: Carvedilol 3.125 mg PO BIDMEALS 11/28/16 [History] RX: Furosemide 40 mg PO DAILY PRN 11/28/16 [History] RX: Lisinopril 10 mg PO DAILY 11/28/16 [History] RX: Simvastatin [Zocor] 10 mg PO BEDTIME 11/28/16 [History] RX: Warfarin [Coumadin] 5 mg PO DAILY 11/28/16 [History] RX: metFORMIN [Glucophage] 1,000 mg PO BIDMEALS 11/28/16 [History] RX: Amoxicillin/Clavulanate K [Augmentin 875-125 MG] 1 tab PO BID #20 tablet [Rx] RX: Azithromycin [Zithromax] 250 mg PO DAILY #5 tablet 11/29/16 [Rx] Past Medical History HEENT History: Reports: Impaired Vision Cardiovascular History: Reports: Automatic Implantable Cardioverter Defibrillators, CAD, Heart Failure, High Cholesterol, Hypertension Genitourinary History: Reports: Renal Disease (suspected) Musculoskeletal History: Reports: Amputation, Fracture, Other (See Below) Other Musculoskeletal History: 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 Endocrine/Metabolic History: Reports: Diabetes, Type II - Infectious Disease History Infectious Disease History: Reports: Chicken Pox, Measles, MRSA, Mumps, Other ( See Below) Other Infectious Disease History: MRSA in foot in June on IV ABX for 6 weeks Social & Family History - Family History Family Medical History: Noncontributory - Tobacco Use Smoking Status *Q: Former Smoker - Caffeine Use Caffeine Use: Reports: None - Alcohol Use Alcohol Use History: Yes Alcohol Use Comment: significant per - Recreational Drug Use Recreational Drug Use: No Recreational Drug Use Comment: per 's report - Living Situation & Occupation Living situation: Reports: ED ROS GENERAL - Review of Systems Review Of Systems: Unable To Obtain ED EXAM, GENERAL - Physical Exam Exam: See Below Free Text/Narrative:: Gen.: Alert, oriented only to self and quite confused but able to follow simple commands. Pupils were equal and reactive and facial muscles are symmetric, he also has equal strength side to side but weak enough it was difficult to stand. mouth very slightly dry and throat is without erythema. Neck is supple and he is moving it around with no signs of meningismus. Lungs have decreased sounds in both bases with crackles on the left side. Heart is regular in rate of 60. Abdomen positive bowel sounds, soft and seems to be nontender although it is difficult to get a good exam secondary to patient cooperation. No rigidity or guarding. Peripheral pulses are +2 in both the upper and lower extremity and he has no lower extremity edema on the left side. He has a below the knee amputation on the right side and the stump does not appear to have any wounds or rubs. There are no obvious skin wounds or lesions anywhere else, although patient was not turned for a full skin exam. No apparent signs of head trauma, bruising or lacerations. EKG INTERPRETATION QRS: LBBB (suspect paced based on monitor) ST-T: Normal Course - Vital Signs Text/Narrative:: initial impression - altered and confused, afebrile, hemodynamics stable, no obvious trauma and not obvious stroke pattern, strength equal, face symmetric, responds to questions although only knows his name. Alert and protecting airway. Elevated respiratory rate, wonder about metabolic causes. Minimal history available initially - is distraught, we have no recent medication list or medical history aside from known diabetes, suspected recent renal dysfunction and possible pneumonia. Rapid response team present to assist, Jv to record. Bedside glucose 334. Not on insulin. Fluids initially ordered at 125/hr, patient does not appear to be dry. Extensive alcohol history but not drinking recently per due to illness. After talking with her a bit further, fluids stopped as patient sounds to have severe heart failure history with pacemakers and ICD in place and lungs already crackles today. No history of liver problems. labs drawn from clinic today but they did not receive a phone call about them. patient hemodynamics ok, sent for head CT scan. Last Recorded V/S: Last Vital Signs Temp 36.3 C 09/26/18 20:18 Pulse 64 09/26/18 20:18 Resp 31 H 09/26/18 20:18 BP 129/79 09/26/18 20:18 Pulse Ox 88 L 09/26/18 20:28 - Orders/Labs/Meds Orders: Active Orders 24 hr Category Date Time Status Accu Check [Blood Glucose Check, Bedside] [RC] ONETIME Care 09/26/18 22:36 Active EKG Documentation Completion [RC] ASDIRECTED Care 09/26/18 20:21 Active Insert [place] Catheter [Insert Urinary Catheter] [OM.PC] Care 09/26/18 21:35 Ordered Q24H Insert [place] Catheter [Insert Urinary Catheter] [OM.PC] Care 09/27/18 21:35 Ordered Q24H Oxygen Therapy Adult [Oxygen Therapy, ED] [RC] Care 09/26/18 20:28 Active ASDIRECTED Urinary Catheter Assessment [RC] QSHIFT Care 09/26/18 21:35 Active CXR [Chest 1V Frontal] [CR] Stat Exams 09/26/18 20:36 Ordered Head wo Cont [CT] Stat Exams 09/26/18 21:12 Ordered CULTURE BLOOD [BC] Urgent Lab 09/26/18 20:40 Received CULTURE BLOOD [BC] Urgent Lab 09/26/18 20:47 Received Blood Culture x2 Reflex Set [OM.PC] Urgent Oth 09/26/18 20:34 Ordered Peripheral IV Insertion Adult [OM.PC] Routine Oth 09/26/18 21:19 Ordered EKG 12 Lead [EK] Routine Ther 09/26/18 20:21 Ordered Labs: Laboratory Tests 09/26/18 09/26/18 09/26/18 Range/Units 20:40 20:40 20:40 WBC 11.8 (4.5-12.0) X10-3/uL RBC 4.45 (4.30-5.75) x10(6)uL Hgb 12.1 L (13.5-17.8) g/dL Hct 37.8 (30.0-51.3) % MCV 85.0 (80-96) fL MCH 27.2 L (27.7-33.6) pg MCHC 32.0 L (32.2-35.4) g/dL RDW 19.6 H (11.5-15.5) % Plt Count 265 (125-369) X10(3)uL MPV 8.2 (7.4-10.4) fL Neut % (Auto) 80.0 (46-82) % Lymph % (Auto) 3.7 L (13-37) % [place] % (Auto) 11.3 (4-12) % Eos % (Auto) 0 L (1.0-5.0) % Baso % (Auto) 5 H (0-2) % Neut # (Auto) 9.6 H (1.6-8.3) # Lymph # (Auto) 0.4 L (0.6-5.0) # [place] # (Auto) 1.3 (0.0-1.3) # Eos # (Auto) 0.0 (0.0-0.8) # Baso # (Auto) 0.5 H (0.0-0.2) # PT (8.7-11.1) INR (0.89-1.13) POC VBG pH (7.31-7.41) POC VBG pCO2 (41-51) mmHG POC VBG HCO3 (23-28) mmol/L POC VBG Total CO2 (24-29) mmol/L POC VBG Base Excess (-2-3) mmol/L Sodium 135 (135-145) mmol/L Potassium 5.8 H (3.5-5.3) mmol/L Chloride 102 (100-110) mmol/L Carbon Dioxide 17 L (21-32) mmol/L BUN 85 H (7-18) mg/dL Creatinine 2.2 H* (0.70-1.30) mg/dL Est Cr Clr Drug Dosing TNP Estimated GFR (MDRD) 30 L (>60) BUN/Creatinine Ratio 38.6 H (9-20) Glucose 295 H (80-116) mg/dL Lactic Acid 4.7 H (0.4-2.2) mmol/L Calcium 8.2 L (8.6-10.2) mg/dL Total Bilirubin 2.2 H (0.1-1.3) mg/dL AST 390 H* (5-25) IU/L ALT 712 H* (12-36) U/L Alkaline Phosphatase 487 H (56-112) IU/L C-Reactive Protein (0.5-0.9) mg/dL Total Protein 8.1 H (6.0-8.0) g/dL Albumin 3.3 (3.2-4.6) g/dL Globulin 4.8 g/dL Albumin/Globulin Ratio 0.7 Urine Color (YELLOW) Urine Appearance (CLEAR) Urine pH (5.0-6.5) Ur Specific [place] (1.010-1.025) Urine Protein (NEGATIVE) mg/dL Urine Glucose (UA) (NORMAL) mg/dL Urine Ketones (NEGATIVE) mg/dL Urine Occult Blood (NEGATIVE) Urine Nitrite (NEGATIVE) Urine Bilirubin (NEGATIVE) Urine Urobilinogen (NEGATIVE) mg/dL Ur Leukocyte Esterase (NEGATIVE) Urine RBC (0-5) Urine WBC (0-5) Ur Squamous Epith Cells (NS,R,O) Amorphous Sediment Urine Bacteria (NS) Hyaline Casts (NS) Urine Mucus (NS) 09/26/18 09/26/18 09/26/18 Range/Units 20:40 20:40 20:57 WBC (4.5-12.0) X10-3/uL RBC (4.30-5.75) x10(6)uL Hgb (13.5-17.8) g/dL Hct (30.0-51.3) % MCV (80-96) fL MCH (27.7-33.6) pg MCHC (32.2-35.4) g/dL RDW (11.5-15.5) % Plt Count (125-369) X10(3)uL MPV (7.4-10.4) fL Neut % (Auto) (46-82) % Lymph % (Auto) (13-37) % [place] % (Auto) (4-12) % Eos % (Auto) (1.0-5.0) % Baso % (Auto) (0-2) % Neut # (Auto) (1.6-8.3) # Lymph # (Auto) (0.6-5.0) # [place] # (Auto) (0.0-1.3) # Eos # (Auto) (0.0-0.8) # Baso # (Auto) (0.0-0.2) # PT 18.3 H (8.7-11.1) INR 1.90 H (0.89-1.13) POC VBG pH 7.29 L (7.31-7.41) POC VBG pCO2 24.6 L (41-51) mmHG POC VBG HCO3 11.7 L (23-28) mmol/L POC VBG Total CO2 12 L (24-29) mmol/L POC VBG Base Excess -15 L (-2-3) mmol/L Sodium (135-145) mmol/L Potassium (3.5-5.3) mmol/L Chloride (100-110) mmol/L Carbon Dioxide (21-32) mmol/L BUN (7-18) mg/dL Creatinine (0.70-1.30) mg/dL Est Cr Clr Drug Dosing Estimated GFR (MDRD) (>60) BUN/Creatinine Ratio (9-20) Glucose (80-116) mg/dL Lactic Acid (0.4-2.2) mmol/L Calcium (8.6-10.2) mg/dL Total Bilirubin (0.1-1.3) mg/dL AST (5-25) IU/L ALT (12-36) U/L Alkaline Phosphatase (56-112) IU/L C-Reactive Protein 8.4 H* (0.5-0.9) mg/dL Total Protein (6.0-8.0) g/dL Albumin (3.2-4.6) g/dL Globulin g/dL Albumin/Globulin Ratio Urine Color (YELLOW) Urine Appearance (CLEAR) Urine pH (5.0-6.5) Ur Specific [place] (1.010-1.025) Urine Protein (NEGATIVE) mg/dL Urine Glucose (UA) (NORMAL) mg/dL Urine Ketones (NEGATIVE) mg/dL Urine Occult Blood (NEGATIVE) Urine Nitrite (NEGATIVE) Urine Bilirubin (NEGATIVE) Urine Urobilinogen (NEGATIVE) mg/dL Ur Leukocyte Esterase (NEGATIVE) Urine RBC (0-5) Urine WBC (0-5) Ur Squamous Epith Cells (NS,R,O) Amorphous Sediment Urine Bacteria (NS) Hyaline Casts (NS) Urine Mucus (NS) 09/26/18 Range/Units 21:28 WBC (4.5-12.0) X10-3/uL RBC (4.30-5.75) x10(6)uL Hgb (13.5-17.8) g/dL Hct (30.0-51.3) % MCV (80-96) fL MCH (27.7-33.6) pg MCHC (32.2-35.4) g/dL RDW (11.5-15.5) % Plt Count (125-369) X10(3)uL MPV (7.4-10.4) fL Neut % (Auto) (46-82) % Lymph % (Auto) (13-37) % [place] % (Auto) (4-12) % Eos % (Auto) (1.0-5.0) % Baso % (Auto) (0-2) % Neut # (Auto) (1.6-8.3) # Lymph # (Auto) (0.6-5.0) # [place] # (Auto) (0.0-1.3) # Eos # (Auto) (0.0-0.8) # Baso # (Auto) (0.0-0.2) # PT (8.7-11.1) INR (0.89-1.13) POC VBG pH (7.31-7.41) POC VBG pCO2 (41-51) mmHG POC VBG HCO3 (23-28) mmol/L POC VBG Total CO2 (24-29) mmol/L POC VBG Base Excess (-2-3) mmol/L Sodium (135-145) mmol/L Potassium (3.5-5.3) mmol/L Chloride (100-110) mmol/L Carbon Dioxide (21-32) mmol/L BUN (7-18) mg/dL Creatinine (0.70-1.30) mg/dL Est Cr Clr Drug Dosing Estimated GFR (MDRD) (>60) BUN/Creatinine Ratio (9-20) Glucose (80-116) mg/dL Lactic Acid (0.4-2.2) mmol/L Calcium (8.6-10.2) mg/dL Total Bilirubin (0.1-1.3) mg/dL AST (5-25) IU/L ALT (12-36) U/L Alkaline Phosphatase (56-112) IU/L C-Reactive Protein (0.5-0.9) mg/dL Total Protein (6.0-8.0) g/dL Albumin (3.2-4.6) g/dL Globulin g/dL Albumin/Globulin Ratio Urine Color Yellow (YELLOW) Urine Appearance Clear (CLEAR) Urine pH 5.0 (5.0-6.5) Ur Specific [place] 1.020 (1.010-1.025) Urine Protein 30 H (NEGATIVE) mg/dL Urine Glucose (UA) Normal (NORMAL) mg/dL Urine Ketones Negative (NEGATIVE) mg/dL Urine Occult Blood Negative (NEGATIVE) Urine Nitrite Negative (NEGATIVE) Urine Bilirubin Small H (NEGATIVE) Urine Urobilinogen 4 H (NEGATIVE) mg/dL Ur Leukocyte Esterase Negative (NEGATIVE) Urine RBC 0-5 (0-5) Urine WBC 0-5 (0-5) Ur Squamous Epith Cells Few H (NS,R,O) Amorphous Sediment Few Urine Bacteria Moderate H (NS) Hyaline Casts Moderate H (NS) Urine Mucus Few H (NS) Meds: Medications Discontinued Medications Generic Name Dose Route Start Last Admin Trade Name Zaneq PRN Reason Stop Dose Admin Calcium Gluconate 1 gm 09/26/18 21:07 09/26/18 21:11 Calcium Gluconate IVPUSH 09/26/18 21:08 1 gm ONETIME ONE Administration Dextrose/Water 50 ml 09/26/18 21:51 09/26/18 22:30 Dextrose 50% In Water IVPUSH 09/26/18 21:52 Not Given ONETIME ONE Insulin Human Regular 8 unit 09/26/18 21:51 09/26/18 22:02 Humulin R IV 09/26/18 21:52 8 units ONETIME ONE Administration Sodium Chloride 10 ml 09/26/18 21:19 09/26/18 22:05 Saline Flush FLUSH 10 ml ASDIRECTED PRN Administration Keep Vein Open - Re-Assessments/Exams Free Text/Narrative Re-Assessment/Exam: 09/27/18 no bleed, mass or midline shift seen on head CT labs - normal WBC, not anemic, elevated BUN, potassium, creatinine, lactic acid , LFTs VBG - acidosis, I think primarily metabolic, with respiratory compensation lungs - bilateral pleural effusion, left greater than right, very wet sounding on repeat exam Free Text/Narrative Re-Assessment/Exam: 09/26/18 22:29 summary of events prior to transfer. Initially started some IV fluid, however stopped it once and when the patient had a significant history of cardiovascular disease. He does not appear septic, has been afebrile since arrival with a normal blood pressure and normal heart rate. His white blood cell count is also normal. A head CT did not show any bleed, mass effect or midline shift and he is able to respond to simple commands and has equal strength bilaterally, equal pupils and facial muscles are symmetric. there is no report of any seizure activity and he does not appear to be seizing here. He can tell me his name but not much else. He has volume overload based on his chest x-ray and lung exam, however peripherally he appears to be euvolemic with good pulses. Based on his VBG, I think he is in a compensated metabolic acidosis. his elevated LFTs would tend to indicate he may also have a component of hepatic failure, and he has renal failure with elevated BUNs, hyperkalemia and acidosis. His lactic acid was elevated, so some anaerobic metabolism, ultimately opted not to give fluids and risk worsening hypoxia and pulmonary edema on the transfer since ambulance was rapidly present. he is on Coumadin, I think for atrial fibrillation. He is not anemic and has no signs of blood loss For the hyperkalemia, he was given 1 g calcium gluconate, 8 units of regular IV insulin and D50 was sent with the ambulance, but patient's blood glucose was 300 's prior to transfer so not given here. Departure - Departure Time of Disposition: 22:40 Disposition: DC/Tfer to [facility] Condition: Serious Clinical Impression: Encephalopathy acute, Metabolic acidosis, Renal failure, acute, Elevated LFTs, Hyperkalemia, CHF (congestive heart failure), Afib - Discharge Information *PRESCRIPTION DRUG MONITORING PROGRAM REVIEWED*: Not Applicable *COPY OF PRESCRIPTION DRUG MONITORING REPORT IN PATIENT CHET: Not Applicable Referrals: Cristopher Rascon MD [Primary Care Provider] - Forms: ED Department Discharge - My Orders Last 24 Hours: My Active Orders 09/26/18 20:21 EKG Documentation Completion [RC] ASDIRECTED EKG 12 Lead [EK] Routine 09/26/18 20:28 Oxygen Therapy Adult [Oxygen Therapy, ED] [RC] ASDIRECTED 09/26/18 20:34 Blood Culture x2 Reflex Set [OM.PC] Urgent 09/26/18 20:36 CXR [Chest 1V Frontal] [CR] Stat 09/26/18 20:40 CULTURE BLOOD [BC] Urgent 09/26/18 20:47 CULTURE BLOOD [BC] Urgent 09/26/18 21:12 Head wo Cont [CT] Stat 09/26/18 21:19 Peripheral IV Insertion Adult [OM.PC] Routine 09/26/18 21:35 Insert [place] Catheter [Insert Urinary Catheter] [OM.PC] Q24H Urinary Catheter Assessment [RC] QSHIFT 09/26/18 22:36 Accu Check [Blood Glucose Check, Bedside] [RC] ONETIME 09/27/18 21:35 Insert [place] Catheter [Insert Urinary Catheter] [OM.PC] Q24H - Assessment/Plan Last 24 Hours: My Active Orders 09/26/18 20:21 EKG Documentation Completion [RC] ASDIRECTED EKG 12 Lead [EK] Routine 09/26/18 20:28 Oxygen Therapy Adult [Oxygen Therapy, ED] [RC] ASDIRECTED 09/26/18 20:34 Blood Culture x2 Reflex Set [OM.PC] Urgent 09/26/18 20:36 CXR [Chest 1V Frontal] [CR] Stat 09/26/18 20:40 CULTURE BLOOD [BC] Urgent 09/26/18 20:47 CULTURE BLOOD [BC] Urgent 09/26/18 21:12 Head wo Cont [CT] Stat 09/26/18 21:19 Peripheral IV Insertion Adult [OM.PC] Routine 09/26/18 21:35 Insert [place] Catheter [Insert Urinary Catheter] [OM.PC] Q24H Urinary Catheter Assessment [RC] QSHIFT 09/26/18 22:36 Accu Check [Blood Glucose Check, Bedside] [RC] ONETIME 09/27/18 21:35 Insert [place] Catheter [Insert Urinary Catheter] [OM.PC] Q24H
[2018-09-27 03:54] VITALS: BP 129/79; PULSE 64
== END 2018-09-26 22:39 ==
LOC: FB.ED 20:17
DX: I11.0 Hypertensive heart disease with heart failure (principal); I50.9 Heart failure, unspecified; I48.91 Unspecified atrial fibrillation; G93.40 Encephalopathy, unspecified; E87.2 Acidosis; N17.9 Acute kidney failure, unspecified; R94.5 Abnormal results of liver function studies; E87.5 Hyperkalemia; I25.10 Atherosclerotic heart disease of native coronary artery without angina pectoris; E78.00 Pure hypercholesterolemia, unspecified; E11.9 Type 2 diabetes mellitus without complications; Z87.891 Personal history of nicotine dependence; Z79.899 Other long term (current) drug therapy; Z79.01 Long term (current) use of anticoagulants; Z79.82 Long term (current) use of aspirin; Z79.84 Long term (current) use of oral hypoglycemic drugs
CPT/HCPCS: 36415; 51702; 70450; 71045; 80053; 81001; 82803; 82962; 83605; 85025; 85610; 86140; 87040; 93005; 93010; 96374; 96375; 99285; J0610; J1815